=== PATIENT | male | born 1940 | race Caucasian/White ===

== ENCOUNTER 2018-07-18 22:20 | Emergency (ER) | payer OTHER, BC ==
--- NOTE | 2018-07-18 22:33 | PDOC ---
Attending Attestation - HPI HPI: 07/18/18 22:44 The patient is a 78 year old male, with a significant PMH of HTN, bilateral knee replacement who presents to the emergency department s/p fall in the setting of alcohol intoxication. Patient's fall was unwitnessed and reports that he had difficulty getting back up. Patient's states he drinks daily. The patient denies chest pain, shortness of breath, headache and dizziness. Denies fever, chills, nausea, vomit, diarrhea and constipation. Denies dysuria, frequency, urgency and hematuria. Allergies: NKA Past surgical history: None reported. Social history: No reported drug or cigarette use. PCP: Dr. Metz <Sammi Camilo - Last Filed: 07/18/18 22:59> - Resident Resident Name: Jluiano Vásquez - ED Attending Attestation I have performed the following: I have examined & evaluated the patient, The case was reviewed & discussed with the resident, I agree w/resident's findings & plan - Physicial Exam PE: 07/19/18 00:49 Agree with the resident exam 07/19/18 00:49 Pt has normal heart and lungs and soft abd. He has left hip tenderness. Left leg is short and externally rotated. 07/19/18 00:50 Pt is afebrile. He is drunk and garrulous. - Medical Decision Making 07/18/18 22:49 Pt will have preop labs and XRAYS. Pt and are requesting that pt be transferred to the hospital where his knee surgeon works. 07/18/18 22:56 Left proximal femur pain; left hip and iliac crest pain. Left left short and externally rotated. 07/19/18 00:39 Pt has an intertrochanteric fracture on the left side. He will be transferred to [facility], as per family request for transfer. 07/19/18 00:40 Patient Name: CRIS WATERS THIS IS A PRELIMINARY REPORT FROM [facility] DATE OF SERVICE: 2018-07-18 23:49:46 IMAGES: 152 EXAM: HEAD CT WITHOUT CONTRAST HISTORY: Status post fall COMPARISON: None. FINDINGS: The ventricular system is midline and nondilated. Mild cortical atrophy is noted. There is no bleed, mass, extra-axial fluid collection or mass effect. No skull fracture or skull lesion is identified. The visualized paranasal sinuses and mastoid air cells are clear. IMPRESSION: No acute pathology 07/19/18 00:44 Labs normal; BUN slightly elevated - pt hydrated. Pt's ETOH level is 266. 07/19/18 00:48 CXR normal 07/19/18 01:10 They are here to transport the patient. 07/19/18 01:25 Pt left for [facility]. <Tanvi Ireland - Last Filed: 07/19/18 01:25>
[2018-07-18 22:36] VITALS: BMI 26.6
[2018-07-18] MEDS ORDERED: morphine CARPU-JECT 2 MG/1 ML DISP.SYRIN IVPUSH ONE (22:39)
[2018-07-18] MEDS ORDERED: MORPHINE SULFATE 2 MG/ML VIAL ONE (22:47)
[2018-07-18] MEDS ORDERED: SODIUM CHLORIDE 0.9% 500 ML INFUS.BAG IV ONE (22:57)
[2018-07-18 22:59] LABS: HEMATOCRIT 35.8 % (35.4-49); HEMOGLOBIN 11.9 GM/dL (11.7-16.9); MCHC 33.2 g/dl (32.0-35.9); MEAN CELL VOLUME 96.2 fl (80-96); MEAN PLT VOLUME 7.1 fl (7.5-11.1); PLATELET COUNT 279 K/MM3 (134-434); RBC 3.72 M/mm3 (4.00-5.60); RDW 13.6 % (11.9-15.9); WHITE BLOOD COUNT 8.1 K/mm3 (4.0-10.0)
--- NOTE | 2018-07-18 23:03 | PDOC ---
History of Present Illness - General Chief Complaint: Injury Stated Complaint: FALL Time Seen by Provider: 07/18/18 22:31 History Source: Patient Exam Limitations: No Limitations - History of Present Illness Initial Comments: 07/18/18 22:50 78m with pmh of htn on aspirin, and bilateral knee replacement for osteoarthritis presents to the ED BIBEMS for fall at home while intoxicated on alcohol as per who was in the next room. Fall was unwitnessed but patient denies LOC. Patient denies tripping, says he just "fell". Unable to stand or ambulate after fall. Left leg is shortened and externally rotated. No obvious deformity Past History - Past Medical History Allergies/Adverse Reactions: Allergies Allergy/AdvReac Type Severity Reaction Status Date / Time No Known Allergies Allergy Verified 07/18/18 22:33 Home Medications: Ambulatory Orders Amlodipine Besylate [Norvasc -] 5 mg PO DAILY 10/22/14 Aspirin [ASA -] 81 mg PO DAILY 10/22/14 Atenolol [Tenormin -] 50 mg PO DAILY 10/22/14 Multivitamins [Multivit ([facility] Formulary)] 1 tab PO DAILY 10/22/14 Omeprazole [Prilosec (RX)] 20 mg PO DAILY 10/22/14 Ropinirole HCl 1 mg PO TID PRN 10/22/14 Rosuvastatin Calcium [Crestor] 40 mg PO DAILY 10/22/14 Azithromycin [Zithromax -] 250 mg PO DAILY #4 tab 12/05/17 Anemia: No Asthma: No Cancer: Yes (basal cell carcinoma) Cardiac Disorders: Yes (SOB) CVA: No COPD: Yes CHF: No Dementia: No Diabetes: No GI Disorders: Yes (GERD) Disorders: No HTN: Yes Hypercholesterolemia: Yes Liver Disease: Yes Seizures: No Thyroid Disease: No - Surgical History Abdominal Surgery: No Appendectomy: No Cardiac Surgery: No Cholecystectomy: No Lung Surgery: No Neurologic Surgery: No Orthopedic Surgery: Yes - Immunization History Td Vaccination: (UNK) Immunization Up to Date: Yes - Suicide/Smoking/Psychosocial Hx Smoking Status: No Smoking History: Never smoked Have you smoked in the past 12 months: No Number of Cigarettes Smoked Daily: 0 If you are a former smoker, when did you quit?: 40 yrs ago Cigars Per Day: 0 Information on smoking cessation initiated: No Hx Alcohol Use: No Drug/Substance Use Hx: No Substance Use Type: None Hx Substance Use Treatment: No Review of Systems - Review of Systems Able to Perform ROS?: Yes Is the patient limited Turkish proficient: No Constitutional: No: Symptoms Reported HEENTM: No: Symptoms Reported Respiratory: No: Symptoms reported Cardiac (ROS): No: Symptoms Reported ABD/GI: No: Symptoms Reported : No: Symptoms Reported Musculoskeletal: Yes: See HPI (left leg shortened and externally rotated. ) Integumentary: No: Symptoms Reported Neurological: No: Symptoms reported *Physical Exam - Vital Signs Last Vital Signs Temp Pulse Resp BP Pulse Ox 97.7 F 74 20 111/77 99 07/18/18 22:33 07/18/18 22:33 07/18/18 22:33 07/18/18 22:33 07/18/18 22:33 - Physical Exam General Appearance: Yes: Nourished, Appropriately Dressed, Intoxicated (alcohol on breath) HEENT: positive: EOMI, KEITH, Normal ENT Inspection Neck: positive: Supple. negative: Tender, Tender midline Respiratory/Chest: positive: Lungs Clear, Normal Breath Sounds. negative: Chest Tender, Respiratory Distress Cardiovascular: positive: Regular Rhythm, Regular Rate, S1, S2 Vascular Pulses: Femoral (R): 2+, Femoral (L): 2+, Dorsalis-Pedis (R): 2+, Doralis-Pedis (L): 2+ Gastrointestinal/Abdominal: positive: Normal Bowel Sounds, Flat, Soft. negative : Tender Musculoskeletal: positive: Decreased Range of Motion, Other (tender on palpation over left hip joint. ) Extremity: positive: Other (excoriation over right forearm. ) Integumentary: positive: Normal Color, Dry, Warm Neurologic: positive: Fully Oriented, Alert, Respond to painful stimul. negative: Normal Mood/Affect (intoxicated) ED Treatment Course - LABORATORY CBC & Chemistry Diagram: 07/18/18 22:52 07/18/18 22:32 - RADIOLOGY Radiology Studies Ordered: Category Date Time Status HEAD CT WITHOUT CONTRAST [CT] Stat CT Scan 07/18/18 22:38 Ordered FEMUR-LEFT [RAD] Stat Radiology 07/18/18 22:37 Ordered HIP & PELVIS-LEFT [RAD] Stat Radiology 07/18/18 22:38 Ordered HIP & PELVIS-RIGHT [RAD] Stat Radiology 07/18/18 22:38 Ordered KNEE 2 POS-LEFT [RAD] Stat Radiology 07/18/18 22:37 Ordered Medical Decision Making - Medical Decision Making 07/18/18 23:12 78m with pmh of htn and b/l knee replacement BIBEMS after fall while intoxicated. Will obtain xrays of hip, pelvis femur and knee and draw preop labs. Morphine for pain control. Also get head ct, ekg and chest xray. Patient and are adamant that in the case of a surgery being necessary they want Dr. Hayes Knowles, orthopedic surgeon who operated on the patient's knees in [facility] in the past. Will arrange for transfer after imaging is back. 07/19/18 00:07 Intertrochanteric frcture of the left hip. No other fracture on Xray. Additional 2mg morphine for pain. Spoke to Dr. Rowland from Dr. Knowles's group who accepted to operate the patient upon transfer to their ED. [facility] ED attending Dr. Mosley accepted the patient for ED to ED transfer. *DC/Admit/Observation/Transfer Diagnosis at time of Disposition: Intertrochanteric fracture of left hip - Discharge Dispostion Disposition: TRANSFER ACUTE CARE/OTHER HOSP Condition at time of disposition: Stable - Referrals - Patient Instructions - Post Discharge Activity - Transfer to Acute Care Facility Receiving Facility: [facility]) Accepting Physician:: Dr. Mosley Transfer comment: 07/19/18 00:11 Transfer at patient and patient's request.
[2018-07-18 23:26] LABS: ALBUMIN 3.4 g/dl (3.4-5.0); ALK PHOS 63 U/L (45-117); ANION GAP 10 MMOL/L (8-16); BILIRUBIN,TOTAL 0.2 mg/dL (0.2-1); BLOOD UREA NITROGEN 29 mg/dL (7-18); CALCIUM 8.6 mg/dL (8.5-10.1); CHLORIDE 104 mmol/L (98-107); CO2 24 mmol/L (21-32); CREATININE 1.3 mg/dL (0.55-1.3); GLUCOSE,RANDOM 87 mg/dL (74-106); POTASSIUM 3.8 mmol/L (3.5-5.1); SGOT/AST 18 U/L (15-37); SGPT/ALT 19 U/L (13-61); SODIUM 137 mmol/L (136-145); TOT PROT 6.1 g/dl (6.4-8.2)
[2018-07-19] MEDS ORDERED: morphine CARPU-JECT 2 MG/1 ML DISP.SYRIN IVPUSH ONE ×2 (00:04)
[2018-07-19] MEDS ORDERED: MORPHINE SULFATE 2 MG/ML VIAL ONE (00:09)
[2018-07-19 00:40] LABS: URINE APPEARANCE CLEAR; URINE BILIRUBIN NEGATIVE (<2.0 mg/dL); URINE COLOR STRAW; URINE GLUCOSE (UA) NEGATIVE (NEGATIVE); URINE KETONE NEGATIVE (NEGATIVE); URINE LEUK ESTERASE NEGATIVE (NEGATIVE); URINE NITRITE NEGATIVE (NEGATIVE); URINE PROTEIN NEGATIVE (NEGATIVE); URINE UROBILINOGEN NEGATIVE mg/dL (0.2-1.0)
[2018-07-19 00:55] VITALS: TEMP 98
[2018-07-19 01:25] VITALS: BP 113/79; PULSE 84
--- NOTE | 2018-07-19 18:28 | EKG ---
Test Reason : Blood Pressure : / mmHG Vent. Rate : 077 BPM Atrial Rate : 077 BPM P-R Int : 200 ms QRS Dur : 088 ms QT Int : 394 ms P-R-T Axes : 063 041 068 degrees QTc Int : 445 ms NORMAL SINUS RHYTHM NORMAL ECG WHEN COMPARED WITH ECG OF 05-DEC-2017 02:53, NO SIGNIFICANT CHANGE WAS FOUND Confirmed by BISHOP MOLINA MD ([id number]) on 07/19/2018 6:28:17 PM Referred By: Confirmed By:BISHOP MOLINA MD
== END 2018-07-19 01:25 | disposition short-term general hospital (02) ==
LOC: JER 22:20
PROC: 3E033NZ Introduction of Analgesics, Hypnotics, Sedatives into Peripheral Vein, Percutaneous Approach (ICD-10-PCS; principal; 2018-07-18)
DX: S72.142A Displaced intertrochanteric fracture of left femur, initial encounter for closed fracture (principal); W18.39XA Other fall on same level, initial encounter; Y93.89 Activity, other specified; Y92.018 Other place in single-family (private) house as the place of occurrence of the external cause; F10.10 Alcohol abuse, uncomplicated; Y90.8 Blood alcohol level of 240 mg/100 ml or more; I10 Essential (primary) hypertension; Z79.82 Long term (current) use of aspirin; E78.00 Pure hypercholesterolemia, unspecified; K21.9 Gastro-esophageal reflux disease without esophagitis; Z85.828 Personal history of other malignant neoplasm of skin; J44.9 Chronic obstructive pulmonary disease, unspecified; Z96.653 Presence of artificial knee joint, bilateral
CPT/HCPCS: 36415; 70450-TC; 71045-TC-FY; 73523-TC-FY; 73552-TC-LT-FY; 73560-TC-LT-FY; 80053; 80307; 81003; 85027; 87086; 87186; 93005; 93010; 96374; 96376; 99285-25

== ENCOUNTER 2019-10-14 08:10 | Day surgery (SDC) | payer OTHER, BC ==
[2019-10-14 08:55] VITALS: BMI 27.5
[2019-10-14 10:59] VITALS: PULSE 60
[2019-10-14 12:22] VITALS: BP 130/64; TEMP 97.8
--- NOTE | 2019-10-18 15:48 | PATH ---
Surgical Pathology Report Patient Name: CRIS WATERS [facility]. Rec. #: [id number] /Age/Gender: 1940 (Age: 79) / M Account: [id number] Location: [facility]-ENDOSCOPY Taken: 10/14/2019 Received: 10/14/2019 Reported: 10/18/2019 Physicians: Perla Fontenot M.D. Specimen(s) Received A: SECOND PORTION DUODENUM AND BULB B: ANTRUM C: POLYP FROM SPLENIC FLEXURE Clinical History Occult blood in stools, surveillance polyps malignant neoplasm Postoperative diagnosis: Hiatal hernia, Schatzki's ring, gastritis, colon polyp, diverticulosis Final Diagnosis A. SECOND PORTION OF DUODENUM AND BULB, BIOPSY: MODERATE CHRONIC DUODENITIS. B. 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 IMMUNOSTAIN IS NEGATIVE FOR H. PYLORI ORGANISMS. C. SPLENIC FLEXURE, POLYP, BIOPSY: TUBULAR ADENOMA. Electronically Signed Yessica Garrett M.D. Gross Description A. Received in formalin, labeled "biopsy second portion of duodenum and bulb" are 3 bruner, irregular portions of soft tissue ranging from 0.1-0.4 cm. in greatest dimension. The specimens are submitted in toto in one cassette. B. Received in formalin, labeled "biopsy antrum and body" are 4 bruner, irregular portions of soft tissue ranging from 0.1-0.7 cm. in greatest dimension. The specimens are submitted in toto in one cassette. C. Received in formalin, labeled "biopsy splenic flexure" are 2 bruner, irregular portions of soft tissue averaging 0.2 cm. in greatest dimension. The specimens are submitted in toto in one cassette. 10/14/2019 saudi/10/14/2019
== END 2019-10-14 11:40 | disposition home or self-care (01) ==
LOC: JASU-ENDO 08:10
PROVIDERS: ATTEND Internal Medicine Gastroenterology
PROC: 0DB98ZX Excision of Duodenum, Via Natural or Artificial Opening Endoscopic, Diagnostic (ICD-10-PCS; 2019-10-14)
PROC: 0DB78ZX Excision of Stomach, Pylorus, Via Natural or Artificial Opening Endoscopic, Diagnostic (ICD-10-PCS; 2019-10-14)
PROC: 0DB68ZX Excision of Stomach, Via Natural or Artificial Opening Endoscopic, Diagnostic (ICD-10-PCS; 2019-10-14)
PROC: 0DBL8ZX Excision of Transverse Colon, Via Natural or Artificial Opening Endoscopic, Diagnostic (ICD-10-PCS; principal; 2019-10-14 09:00)
DX: Z12.11 Encounter for screening for malignant neoplasm of colon (principal); D12.3 Benign neoplasm of transverse colon; K57.30 Diverticulosis of large intestine without perforation or abscess without bleeding; R19.5 Other fecal abnormalities; K64.8 Other hemorrhoids; K29.80 Duodenitis without bleeding; K44.9 Diaphragmatic hernia without obstruction or gangrene; K22.2 Esophageal obstruction; K29.50 Unspecified chronic gastritis without bleeding; K31.9 Disease of stomach and duodenum, unspecified; I10 Essential (primary) hypertension; E78.5 Hyperlipidemia, unspecified; G25.81 Restless legs syndrome
CPT/HCPCS: 88305-TC; 88342-TC

== ENCOUNTER 2020-10-17 12:57 | Emergency (ER) | payer OTHER, BC ==
[2020-10-17 13:11] VITALS: BP 149/69; PULSE 96; TEMP 97.9; BMI 27.8
[2020-10-17 15:37] LABS: BASO % 0.2 % (0-2.0); HEMATOCRIT 36.5 % (35.4-49); HEMOGLOBIN 12.7 GM/dL (11.7-16.9); LYMPH % 3.9 % (8-40); MCH 34.8 pg (25.7-33.7); MCHC 34.7 g/dl (32.0-35.9); MEAN CELL VOLUME 100.3 fl (80-96); MEAN PLT VOLUME 8.5 fl (7.5-11.1); MONO % 4.4 % (3.8-10.2); NEUT % 91.5 % (42.8-82.8); PLATELET COUNT 260 K/MM3 (134-434); RBC 3.64 M/mm3 (4.00-5.60); RDW 13.1 % (11.9-15.9); WHITE BLOOD COUNT 15.2 K/mm3 (4.0-10.0)
[2020-10-17 16:04] LABS: CHLORIDE 102 mmol/L (98-107); POTASSIUM 4.6 mmol/L (3.5-5.1); SODIUM 135 mmol/L (136-145)
[2020-10-17 16:06] LABS: ALBUMIN 3.6 g/dl (3.4-5.0); ANION GAP 7 MMOL/L (8-16); BLOOD UREA NITROGEN 22.1 mg/dL (7-18); CALCIUM 9.6 mg/dL (8.5-10.1); CO2 26 mmol/L (21-32); GLUCOSE,RANDOM 126 mg/dL (74-106)
[2020-10-17 16:09] LABS: SGOT/AST 24 U/L (15-37); SGPT/ALT 23 U/L (13-61)
[2020-10-17 16:10] LABS: CREATININE 1.3 mg/dL (0.55-1.3)
[2020-10-17 16:11] LABS: BILIRUBIN,TOTAL 0.6 mg/dL (0.2-1); TOT PROT 6.9 g/dl (6.4-8.2)
[2020-10-17 16:12] LABS: ALK PHOS 85 U/L (45-117)
[2020-10-17 16:29] LABS: ANISOCYTOSIS 1+; MACROCYTOSIS 1+; PLATELET ESTIMATE NORMAL
[2020-10-17 17:57] LABS: EPI CELLS 6 /uL (0-25.1); HYALINE CASTS 1 /uL (0-3.1); PH,URINE 5.5 (5.0-8.0); URINE APPEARANCE CLEAR; URINE BACTERIA 5315 /uL (0-1359); URINE BILIRUBIN 1+ (NEGATIVE); URINE COLOR DK YELLOW; URINE GLUCOSE (UA) NEGATIVE (NEGATIVE); URINE KETONE TRACE (NEGATIVE); URINE LEUK ESTERASE NEGATIVE (NEGATIVE); URINE NITRITE NEGATIVE (NEGATIVE); URINE PROTEIN 1+ (NEGATIVE); URINE RBC 9 /uL (0-23.9); URINE WBC 11 /uL (0-25.8)
== END 2020-10-17 18:34 | disposition home or self-care (01) ==
LOC: JER 12:57
DX: J44.1 Chronic obstructive pulmonary disease with (acute) exacerbation (principal)
CPT/HCPCS: 36415; 71046-TC-FY; 80053; 81003; 82550; 84484; 85025; 87086; 93005; 93010; 99285-25; C9803; U0003

== ENCOUNTER 2021-06-29 04:02 | Emergency (ER) | payer OTHER, BC ==
[2021-06-29 04:13] VITALS: TEMP 97.5; BMI 27.5
[2021-06-29 05:38] LABS: BASO % 0.3 % (0-2.0); EOS % 2.4 % (0-4.5); HEMATOCRIT 34.5 % (35.4-49); HEMOGLOBIN 12.1 GM/dL (11.7-16.9); MCH 35.3 pg (25.7-33.7); MEAN PLT VOLUME 8.7 fl (7.5-11.1); MONO % 7.4 % (3.8-10.2); NEUT % 63.9 % (42.8-82.8); PLATELET COUNT 235 10^3/uL (134-434); RBC 3.42 M/mm3 (4.00-5.60); RDW 13.1 % (11.9-15.9); WHITE BLOOD COUNT 7.5 K/mm3 (4.0-10.0)
[2021-06-29 05:53] LABS: INR 0.86 (0.83-1.09); PROTHROMBIN TIME (PATIENT) 9.6 SEC (9.7-13.0)
[2021-06-29 05:58] LABS: CHLORIDE 104 mmol/L (98-107); SODIUM 136 mmol/L (136-145)
[2021-06-29 06:00] LABS: CALCIUM 8.4 mg/dL (8.5-10.1)
[2021-06-29 06:01] LABS: ANION GAP 13 MMOL/L (8-16); BLOOD UREA NITROGEN 23.3 mg/dL (7-18); CO2 19 mmol/L (21-32); GLUCOSE,RANDOM 143 mg/dL (74-106); LIPASE 103 U/L (73-393)
[2021-06-29 06:04] LABS: CREATININE 1.5 mg/dL (0.55-1.3); SGOT/AST 36 U/L (15-37); SGPT/ALT 32 U/L (13-61)
[2021-06-29 06:06] LABS: BILIRUBIN,TOTAL 0.3 mg/dL (0.2-1)
[2021-06-29 06:07] LABS: ALK PHOS 78 U/L (45-117)
[2021-06-29] MEDS ORDERED: diphenhydrAMINE HCL 25 MG CAPSULE (FP) PO ONE (06:56)
[2021-06-29 08:12] VITALS: BP 142/62; PULSE 69
== END 2021-06-29 08:12 | disposition home or self-care (01) ==
LOC: JER 04:02
DX: R10.84 Generalized abdominal pain (principal)
CPT/HCPCS: 36415; 70486-TC; 71045-TC-FY; 74177-TC; 80053; 82550; 83690; 84484; 85025; 85610; 85730; 93005; 93010; 99285-25; C9803; U0003; U0005

== ENCOUNTER 2022-03-23 21:31 | Emergency (ER) | payer OTHER, BC ==
[2022-03-23 21:49] VITALS: BP 108/59; PULSE 59; RESP 18; TEMP 98.1; BMI 25.0
[2022-03-23] MEDS ORDERED: ACETAMINOPHEN 500 MG TABLET (FP) PO ONE (23:07)
[2022-03-23] MEDS ORDERED: ACETAMINOPHEN 325 MG TABLET (FP) ONE (23:30)
== END 2022-03-24 01:05 | disposition left against medical advice (07) ==
LOC: JER 21:31
DX: M25.511 Pain in right shoulder (principal); W10.9XXA Fall (on) (from) unspecified stairs and steps, initial encounter
CPT/HCPCS: 70450-TC; 71046-TC-FY; 72125-TC; 73030-TC-RT-FY; 73200-TC-RT; 99285-25

== ENCOUNTER 2023-06-27 22:29 | Emergency (ER) | payer OTHER, BC ==
[2023-06-27 22:35] VITALS: BMI 25.1
[2023-06-27 22:45] VITALS: BP 99/60; PULSE 74; RESP 16; TEMP 98.5
[2023-06-27] MEDS ORDERED: LIDOCAINE HCL 1%, 10 MG/ML (20ML VIAL) ONE (23:00)
[2023-06-27] MEDS ORDERED: CEPHALEXIN MONOHYDRATE 500 MG CAPSULE (UD) PO ONE (23:35)
[2023-06-27] MEDS ORDERED: CEPHALEXIN MONOHYDRATE 500 MG CAPSULE (UD) ONE (23:43)
== END 2023-06-27 23:52 | disposition home or self-care (01) ==
LOC: FER 22:29
PROC: 0HQ2XZZ Repair Right Ear Skin, External Approach (ICD-10-PCS; principal; 2023-06-27)
DX: S01.321A Laceration with foreign body of right ear, initial encounter (principal); S50.01XA Contusion of right elbow, initial encounter; W01.198A Fall on same level from slipping, tripping and stumbling with subsequent striking against other object, initial encounter
CPT/HCPCS: 99283-25